=== PATIENT | female | born 1945 | race Caucasian/White ===

== ENCOUNTER 2019-10-29 08:44 | Outpatient (CLI) | payer MEDICARE, OTHER, SELFPAY ==
--- NOTE | ~2019-10-29 | XR_ITS ---
EXAMINATION: XR chest 2V EXAM DATE: 10/29/2019 09:20 INDICATION: Hypertension. TECHNIQUE: Frontal and lateral projections of the chest obtained and reviewed. There is no prior josiah dy for comparison. FINDINGS: Small clusters of nodules at the lung apices bilaterally, likely postinfectious. This patie nt has risk factors, smoking history consider follow-up low-dose chest CT. There are no pleural effus ions. The cardiomediastinal silhouette is within normal limits. There is no pneumothorax suspected. The bones and soft tissues are unremarkable. Mild hyperinflation. IMPRESSION: No acute cardiopulmonary findings. Small cluster of nodules in each lung apex likely post infectious but if there is higher risk than consider follow-up low-dose chest CT. Reviewed, dictated and finalized at location A. ENGER SCREENER IMPRESSION: No acute cardiopulmonary findings. Small cluster of nodules in each lung apex likely postinfectious but if there is higher risk than consider foll ow-up low-dose chest CT.
[2019-10-29 09:03] LABS: Basophils Absolute Auto 0.03 K/mm3 (0.00-0.10); Basophils Percent Auto 0.6 % (0.0-1.0); Eosinophils Absolute Auto 0.15 K/mm3 (0.02-0.50); Eosinophils Percent Auto 2.9 % (1.0-6.0); Hematocrit 40.5 % (35.0-42.0); Hemoglobin 13.1 g/dL (11.7-13.8); Immature Granulocyte Absolute 0.01 K/mm3 (0.00-0.00); Immature Granulocyte Percent A 0.2 % (0.0-0.0); Lymphocytes Percent Auto 36.9 % (18.0-42.0); Mean Corpuscular HGB Conc 32.3 g/dL (32.0-36.0); Mean Corpuscular Hemoglobin 29.4 pg (27.0-31.0); Mean Platelet Volume 11.1 fl (9.2-11.8); Monocytes Absolute Auto 0.58 K/mm3 (0.10-0.90); Monocytes Percent Auto 11.3 % (2.0-11.0); Neutrophils Absolute Auto 2.5 K/mm3 (1.7-7.2); Neutrophils Percent Auto 48.1 % (50.0-70.0); Platelet Count Result 218 K/mm3 (150-420); Red Blood Count 4.45 M/mm3 (4.20-5.40); Red Cell Distribution Width 13.4 % (11.6-14.4); White Blood Count 5.2 K/mm3 (4.8-10.8)
[2019-10-29 09:12] LABS: Add Urine Microscopic? YES; Appearance Urine Clear (Clear); Bilirubin Urine Negative (Negative); Blood Urine 1+ (Negative); Color Urine Yellow (Yellow); Glucose Urine UA Negative (Negative); Ketones Urine Negative (Negative); Leukocyte Esterase Ur Trace (Negative); Nitrate Urine Negative (Negative); Protein Urine Negative (Negative); Specific Grav Ur 1.025 (1.010-1.020); Urobilinogen Urine 0.2 mg/dL (0.2-1.0); pH Urine 5.5 (5.0-8.0)
[2019-10-29 09:17] LABS: RBC Urine 0-2 /hpf (0-2); Squamous Epithelial Cell Urine Occasional /hpf (Few); WBC Urine 0-3 /hpf (0-3)
[2019-10-29 09:18] LABS: Bacteria Urine None seen /hpf
[2019-10-29 10:14] LABS: Alanine Aminotransferase 32 U/L (14-59); Albumin Level 3.9 g/dL (3.4-5.0); Alkaline Phosphatase 129 U/L (46-116); Anion Gap 10.4 mmol/L (7-16); Aspartate Amino Transferase 25 U/L (15-37); Blood Urea Nitrogen 17 mg/dL (7-18); Calcium 9.3 mg/dL (8.5-10.1); Carbon Dioxide 33 mmol/L (21-32); Chloride 107 mmol/L (98-108); Cholesterol 184 mg/dL (0-200); Estimated Glomerular Filt Rate > 60; Glucose 83 mg/dL (70-99); HDL Direct 60 mg/dL (40-60); LDL Cholesterol Calculated 108 mg/dL (<130); Osmolality Calculated 300 mOsm/kg (285-295); Potassium 5.4 mmol/L (3.5-5.1); Sodium 145 mmol/L (136-145); Thyroid Stimulating Hormone 2.74 uIU/mL (0.36-3.74); Triglycerides 78 mg/dL (0-150)
[2019-10-31 19:54] LABS: Hepatitis A Antibody IgM Nonreactive; Hepatitis B Core Antibody Nonreactive (Nonreactive); Hepatitis B Surface Antigen Nonreactive (Nonreactive); Hepatitis C Signal to Cutoff 0.05 ratio (<1.00); Hepatitis C Virus Antibody Nonreactive (Nonreactive)
== END 2019-10-29 08:45 | disposition home or self-care (01) ==
PROVIDERS: PCP Internal Medicine; Visit Provider Internal Medicine
DX: I10 Essential (primary) hypertension (principal); R94.5 Abnormal results of liver function studies
CPT/HCPCS: 36415; 71046; 80053; 80061; 80074; 81001; 84443; 85025

== ENCOUNTER 2019-10-30 08:32 | Outpatient (CLI) | payer MEDICARE, OTHER, SELFPAY ==
--- NOTE | ~2019-10-30 | CT_ITS ---
EXAMINATION: CT abdomen pelvis wo con DATE: 10/30/2019 09:36 INDICATION: Hematuria TECHNIQUE: Computed tomography (CT) of the abdomen and pelvis was performed without intravenous contr ast. The dose-length product (DLP) was 214.76 mGy-cm. Automated exposure control and iterative recons truction technique were employed. COMPARISON: None FINDINGS: Minimal dependent atelectasis is present in the lung bases. The heart size is normal. There is a small fat-containing Bochdalek type hernia posteriorly right hemidiaphragm. A 1.4 cm fluid atte nuation area of the left hepatic lobe likely represents a cyst. The spleen, pancreas, and adrenal gla nds are normal. Stones are present in the gallbladder. The kidneys are unremarkable No stones are rene ntified in the kidneys, ureters, or bladder. There is no hydronephrosis or hydroureter. A large volum e of colonic stool is present. No pathologically enlarged abdominal or pelvic lymph nodes are identif ied. There is no free intraperitoneal gas or evidence of bowel obstruction. There is moderate lumbar spondylosis. A 2.1 cm cystic lesion in the right adnexa. IMPRESSION: 1. No CT correlate for the patient's symptoms. 2. 2.1 cm cystic lesion of the right adnexa. In a postmenopausal female, pelvic ultrasound should be considered. 3. Cholelithiasis. Reviewed, dictated and finalized at location A. ER
--- NOTE | ~2019-10-30 | CT_ITS ---
EXAMINATION: CT chest high resolution [facility] EXAM DATE: 10/30/2019 09:36 INDICATION: Hematuria, interstitial lung disease. Apical opacities on CT. TECHNIQUE: Spiral CT of the chest without contrast. HRCT. Axial, coronal and sagittal images were re viewed. Coronal maximum intensity pixel images of chest reviewed. The dose-length product (DLP) for this examination was 214.76 mGy-cm. The exposure was tailored according to patient size (auto mA ex posure control), and iterative reconstruction (ASIR) was used as additional dose reduction technique. There is no prior study for comparison. FINDINGS: Scattered biapical opacities consistent with scarring. No intralobular septal thickening o n the HRCT. There are no pleural or pericardial effusions. Tracheobronchial tree is patent. Ther e is no mediastinal, hilar or axillary lymphadenopathy. There is no pneumothorax. Heart normal in size. No evidence of coronary arterial calcification. There is cholelithiasis. There is left live r lobe lesion which is fluid density measuring 1.5 cm likely a cyst. There is mild thoracic spondylo sis without osteoblastic or osteolytic lesions identified. IMPRESSION: 1. Biapical opacities consistent with scarring. 2. Cholelithiasis. Reviewed, dictated and finalized at location A. S TUTOR
== END 2019-10-30 08:33 | disposition home or self-care (01) ==
LOC: CHSIMG 08:34
PROVIDERS: PCP Internal Medicine; Visit Provider Internal Medicine
DX: J84.9 Interstitial pulmonary disease, unspecified (principal); R31.9 Hematuria, unspecified
CPT/HCPCS: 71250; 74176

== ENCOUNTER 2019-11-05 12:26 | Outpatient (CLI) | payer MEDICARE, OTHER, SELFPAY ==
--- NOTE | ~2019-11-05 | US_ITS ---
EXAMINATION: US pelvic complete EXAM DATE: 11/05/2019 13:21 INDICATION: Cyst right-sided pelvis. TECHNIQUE: Pelvic transabdominal sonogram was performed. There are multiple grayscale and Doppler im ages available for interpretation. Correlation is made to CT abdomen 10/30/2019. FINDINGS: The uterus and ovaries are not identified. No evidence of adnexal mass. On the CT scan, the re is no good acoustic window to identify small right ovarian cystic lesion, with patient's cecum and small bowel located between it and the lower abdominal wall on CT. IMPRESSION: Unremarkable pelvic ultrasound exam. Right ovarian cystic lesion most likely benign histo logy but consider 6-12 month follow-up CT pelvis without contrast. Reviewed, dictated and finalized at location B. WORKER IMPRESSION: Unremarkable pelvic ultrasound exam. Right ovarian cystic lesion mo st likely benign histology but consider 6-12 month follow-up CT pelvis without contrast.
== END 2019-11-05 12:27 | disposition home or self-care (01) ==
LOC: CHSIMG 12:28
PROVIDERS: PCP Internal Medicine; Visit Provider Internal Medicine
DX: N94.89 Other specified conditions associated with female genital organs and menstrual cycle (principal)
CPT/HCPCS: 76856

== ENCOUNTER 2020-07-03 09:34 | Outpatient (CLI) | payer MEDICARE, OTHER, SELFPAY ==
--- NOTE | ~2020-07-03 | MM_ITS ---
EXAMINATION: MM screening luis e BI w nohemi HISTORY: Screening mammogram TECHNIQUE: Craniocaudal and mediolateral oblique 3-D tomosynthesis images were obtained and synthetic 2-D images were generated. CAD analysis was submitted and interpreted. COMPARISON: 11/05/2018, 10/04/2016, 07/29/2015 bilateral digital screening mammogram examinations BREAST PARENCHYMAL COMPOSITION: There are scattered areas of fibroglandular density. FINDINGS: There is no evidence of suspicious mass, calcification, or architectural distortion to sugg est malignancy in either breast. There has been no suspicious interval change. IMPRESSION: 1. No mammographic evidence of malignancy. 2. Recommend routine screening mammography in one year. BI-RADS Category 1: Negative Reviewed, dictated and finalized at location A.
--- NOTE | ~2020-07-03 | US_ITS ---
EXAMINATION: US pelvic complete DATE: 07/03/2020 10:35 INDICATION: Right ovarian cyst follow-up Comparison:Ultrasound dated 11/05/2019 TECHNIQUE: Multiple transabdominal sonographic images of the pelvis performed. FINDINGS: The uterus is surgically absent. Left ovary not visualized. Right ovary is unremarkable german suring 1.5 x 2.1 x 2.8 cm. No free fluid in the pelvis. There is no free fluid in the pelvis. There are no abnormal masses seen on either side. IMPRESSION: 1. Unremarkable pelvic ultrasound post hysterectomy. Reviewed, dictated and finalized at location B.
== END 2020-07-03 09:35 | disposition home or self-care (01) ==
LOC: CHSIMG 09:37
PROVIDERS: PCP Internal Medicine; Visit Provider Internal Medicine
DX: N83.201 Unspecified ovarian cyst, right side (principal); Z12.31 Encounter for screening mammogram for malignant neoplasm of breast
CPT/HCPCS: 76856; 77063; 77067

== ENCOUNTER 2020-07-08 12:26 | Outpatient (CLI) | payer MEDICARE, SELFPAY ==
[2020-07-08 13:41] LABS: Alanine Aminotransferase 42 U/L (14-59); Albumin Level 4.1 g/dL (3.4-5.0); Alkaline Phosphatase 174 U/L (46-116); Anion Gap 9 mmol/L (8-16); Aspartate Amino Transferase 26 U/L (15-37); Bilirubin,Total 0.8 mg/dL (0.00-1.00); Blood Urea Nitrogen 20 mg/dL (7-18); Calcium 9.3 mg/dL (8.5-10.1); Carbon Dioxide 29 mmol/L (21-32); Chloride 105 mmol/L (98-108); Estimated Glomerular Filt Rate > 60; Glucose 88 mg/dL (70-99); Osmolality Calculated 297 mOsm/kg (285-295); Potassium 4.3 mmol/L (3.5-5.1); Sodium 143 mmol/L (136-145); Total Protein 7.3 g/dL (6.4-8.2)
== END 2020-07-08 12:27 | disposition home or self-care (01) ==
LOC: CHSLAB 12:28
PROVIDERS: PCP Internal Medicine; Visit Provider Internal Medicine
DX: I10 Essential (primary) hypertension (principal)
CPT/HCPCS: 36415; 80053

== ENCOUNTER 2021-03-26 08:50 | Outpatient (CLI) | payer MEDICARE, SELFPAY ==
--- NOTE | ~2021-03-26 | DEXA_ITS ---
Bone Density Report Name: Elizabeth Rangel Age: 75 Sex: Female Ethnicity: White Date of : 1945 Indication: postmenopausal osteoporosis; height loss; hysterectomy; Referring Provider: Javier Rasmussen Study: Bone densitometry was performed. Exam Date: March 26, 2021 Accession number: [id number] Bone Density: Region BMD T-score Z-score Classification AP Spine(L1-L4) 0.922 -1.1 1.4 Osteopenia Femoral Neck (Left) 0.680 -1.5 0.6 Osteopenia Total Hip (Left) 0.811 -1.1 0.8 Osteopenia Femoral Neck (Right) 0.665 -1.7 0.5 Osteopenia Total Hip (Right) 0.755 -1.5 0.4 Osteopenia Femoral Neck Mean 0.673 -1.6 0.6 Osteopenia Total Hip Mean 0.783 -1.3 0.6 Osteopenia World Health Organization criteria for BMD impression classify patients as: Normal (T-score at or above -1.0), Osteopenia (T-score between -1.0 and -2.5), or Osteoporosis (T-score at or below -2.5). 10-year Fracture Risk(1): Major Osteoporotic Fracture 12% Hip Fracture 2.8% Reported Risk Factors: [place] (), Neck BMD=0.665, BMI=28.3 (1) FRAX(R) Version 3.08. Fracture probability calculated for an untreated patient. Fracture probability may be lower if the patient has received treatment. Previous Exams: Region Exam Age BMD T-score BMD Change BMD Change Date g/cm2 vs Baseline vs Previous AP Spine (L1-L4) 03/26/2021 75 0.922 -1.1 -0.070 (-7.1%) 0.520 (129.4%) 11/05/2018 73 0.402 -5.9 -0.590 (-59.5% -0.625 (-60.9% 07/29/2015 70 1.027 -0.2 0.034 (3.5%)* 0.034 (3.5%)* 10/31/2011 66 0.992 -0.5 Total Hip(Left) 03/26/2021 75 0.811 -1.1 0.020 (2.5%)# 0.016 (2.0%)# 11/05/2018 73 0.795 -1.2 0.004 (0.5%) -0.045 (-5.4%) 07/29/2015 70 0.840 -0.8 0.049 (6.2%)* 0.049 (6.2%)* 10/31/2011 66 0.791 -1.2 Total Hip(Right) 03/26/2021 75 0.755 -1.5 -0.003 (-0.5%) -0.007 (-0.9%) 11/05/2018 73 0.762 -1.5 0.003 (0.4%) 0.003 (0.4%) 10/31/2011 66 0.759 -1.5 *Denotes significance at 95% confidence level, LSC for AP Spine = 0.022 g/cm2, LSC for Total Hip = 0.027 g/cm2 # Denotes dissimilar scan types or analysis methods Clinical Information Provided by Patient: Has used the following medications: HRT (i.e. estrogen/hormone therapy), Calcium Has the following medical conditions: Hysterectomy Patient maximum height was 64 No regular weight bearing exercise Onset of menses at age 11 Number of children 3
[2021-03-26 09:42] LABS: Basophils Absolute Auto 0.03 K/mm3 (0.00-0.10); Basophils Percent Auto 0.6 % (0.0-1.0); Eosinophils Absolute Auto 0.07 K/mm3 (0.02-0.50); Eosinophils Percent Auto 1.5 % (1.0-6.0); Hematocrit 40.1 % (35.0-42.0); Hemoglobin 12.9 g/dL (11.7-13.8); Immature Granulocyte Absolute 0.02 K/mm3 (0.00-0.00); Immature Granulocyte Percent A 0.4 % (0.0-0.0); Lymphocytes Absolute Auto 1.69 K/mm3 (1.10-4.50); Lymphocytes Percent Auto 35.2 % (18.0-42.0); Mean Corpuscular HGB Conc 32.2 g/dL (32.0-36.0); Mean Corpuscular Hemoglobin 29.5 pg (27.0-31.0); Mean Corpuscular Volume 91.8 fL (78.0-102.0); Mean Platelet Volume 11.4 fl (9.2-11.8); Monocytes Absolute Auto 0.53 K/mm3 (0.10-0.90); Neutrophils Absolute Auto 2.5 K/mm3 (1.7-7.2); Neutrophils Percent Auto 51.3 % (50.0-70.0); Platelet Count Result 233 K/mm3 (150-420); Red Blood Count 4.37 M/mm3 (4.20-5.40); Red Cell Distribution Width 12.9 % (11.6-14.4); White Blood Count 4.8 K/mm3 (4.8-10.8)
[2021-03-26 09:58] LABS: Add Urine Microscopic? YES; Appearance Urine Clear (Clear); Bilirubin Urine Negative (Negative); Blood Urine 1+ (Negative); Color Urine Yellow (Yellow); Glucose Urine UA Negative (Negative); Ketones Urine Negative (Negative); Leukocyte Esterase Ur Negative (Negative); Nitrate Urine Negative (Negative); Protein Urine Negative (Negative); Specific Grav Ur >= 1.030 (1.010-1.020); Urobilinogen Urine 0.2 mg/dL (0.2-1.0); pH Urine 5.5 (5.0-8.0)
[2021-03-26 10:10] LABS: Bacteria Urine Trace /hpf; Mucus Urine Moderate /lpf; RBC Urine 0-2 /hpf (0-2); Squamous Epithelial Cell Urine Few /hpf (Few); WBC Urine None seen /hpf (0-3)
[2021-03-26 10:32] LABS: Alanine Aminotransferase 33 U/L (14-59); Albumin Level 3.9 g/dL (3.4-5.0); Alkaline Phosphatase 154 U/L (46-116); Anion Gap 10 mmol/L (8-16); Aspartate Amino Transferase 28 U/L (15-37); Bilirubin,Total 1.1 mg/dL (0.00-1.00); Blood Urea Nitrogen 14 mg/dL (7-18); Calcium 9.4 mg/dL (8.5-10.1); Carbon Dioxide 28 mmol/L (21-32); Chloride 107 mmol/L (98-108); Cholesterol 172 mg/dL (0-200); Estimated Glomerular Filt Rate > 60; Glucose 88 mg/dL (70-99); HDL Direct 67 mg/dL (40-60); LDL Cholesterol Calculated 91 mg/dL (<130); Osmolality Calculated 299 mOsm/kg (285-295); Potassium 4.5 mmol/L (3.5-5.1); Sodium 145 mmol/L (136-145); Thyroid Stimulating Hormone 2.17 uIU/mL (0.36-3.74); Triglycerides 71 mg/dL (0-150)
== END 2021-03-26 08:51 | disposition home or self-care (01) ==
LOC: CHSIMG 08:56
PROVIDERS: PCP Internal Medicine; Visit Provider Internal Medicine
DX: R94.5 Abnormal results of liver function studies (principal); I10 Essential (primary) hypertension; Z78.0 Asymptomatic menopausal state; M81.0 Age-related osteoporosis without current pathological fracture
CPT/HCPCS: 36415; 77080; 80053; 80061; 81001; 84443; 85025

== ENCOUNTER 2021-04-01 14:12 | Outpatient (CLI) | payer MEDICARE, SELFPAY ==
[2021-04-01 14:24] LABS: Add Urine Microscopic? YES; Appearance Urine Clear (Clear); Bilirubin Urine Negative (Negative); Blood Urine 1+ (Negative); Color Urine Yellow (Yellow); Glucose Urine UA Negative (Negative); Ketones Urine Negative (Negative); Leukocyte Esterase Ur Negative LEU/UL (Negative); Nitrate Urine Negative (Negative); Protein Urine Negative (Negative); Specific Grav Ur 1.025 (1.010-1.020); Urobilinogen Urine 0.2 mg/dL (0.2-1.0); pH Urine 5.5 (5.0-8.0)
[2021-04-01 14:47] LABS: Bacteria Urine 2+ /hpf; Squamous Epithelial Cell Urine Rare /hpf (Few); WBC Urine 0-3 /hpf (0-3)
== END 2021-04-01 14:13 | disposition home or self-care (01) ==
LOC: CHSLAB 14:15
PROVIDERS: PCP Internal Medicine; Visit Provider Internal Medicine
DX: R31.9 Hematuria, unspecified (principal)
CPT/HCPCS: 81001

== ENCOUNTER 2021-05-03 08:30 | Outpatient (CLI) | payer MEDICARE, SELFPAY ==
--- NOTE | ~2021-05-03 | CT_ITS ---
EXAMINATION: CT abdomen pelvis wo/w con EXAM DATE: 05/03/2021 09:33 INDICATION: Microscopic hematuria TECHNIQUE: Spiral CT of the abdomen and pelvis was performed without contrast. The patient was then injected with small bolus intravenous Omnipaque 350, followed by delay of approximately 10 minutes to allow collecting system to opacify. A post contrast scan abdomen and pelvis was performed during inj ection of remaining contrast. A total of 130 cc intravenous contrast was administered. The dose-meg th product (DLP) for this examination was 897.50 mGy-cm. The exposure was tailored according to chidi ent size (auto mA exposure control), and iterative reconstruction (ASIR) was used as additional dose reduction technique. Comparison is made to prior examination from 10/30/2019. FINDINGS: There is no hydronephrosis or nephrolithiasis. The kidneys enhance symmetrically. There a re no suspicious renal lesions. The calyces and opacified portions of ureters are unremarkable, with out filling defects or focal suspicious strictures. The bladder is unremarkable. The uterus is not identified and has likely been surgically resected. The liver, spleen, adrenal glands and pancreas are unremarkable. There are gallstones within an othe rwise unremarkable gallbladder. No evidence of obstructive biliary disease. There is no retroperito marie or pelvic lymphadenopathy. The appendix is not positively visualized. There is no pericecal inflammatory change to suggest appe ndicitis. The stomach and small bowel are unremarkable. There is expected amount of colonic stool. No free intraperitoneal gas. The heart is normal in size. There are no pericardial or pleural e ffusions. The lung bases are unremarkable. There are no osteoblastic or osteolytic lesions identifi ed. IMPRESSION: 1. No suspicious genitourinary findings. 2. Cholelithiasis. Reviewed, dictated and finalized at location A.
--- NOTE | ~2021-05-03 | XR_ITS ---
EXAMINATION: XR abdomen/kub 1V EXAM DATE: 05/03/2021 08:49 INDICATION: microscopic hematuria . TECHNIQUE: Frontal projection of the upper abdomen, frontal projection lower abdomen/pelvis for inter pretation. There is no prior study for comparison. FINDINGS: There is expected amount of colonic stool and gas. No small bowel dilation, nonobstructiv e bowel gas pattern. There are no suspicious calcifications identified. There is no organomegaly suspected. Mild lumbar dextroscoliosis. There is no free intraperitoneal air. The lung bases are clear. IMPRESSION: Unremarkable abdomen x-ray exam. Reviewed, dictated and finalized at location A.
== END 2021-05-03 08:31 | disposition home or self-care (01) ==
PROVIDERS: PCP Internal Medicine; Visit Provider Nurse Practitioner Family
DX: R31.29 Other microscopic hematuria (principal); K80.20 Calculus of gallbladder without cholecystitis without obstruction
CPT/HCPCS: 74018; 74178; Q9967

== ENCOUNTER 2022-05-02 14:00 | Outpatient (CLI) | payer MEDICARE, OTHER, SELFPAY ==
--- NOTE | ~2022-05-02 | MM_ITS ---
EXAMINATION: MM screening [facility] BI w nohemi HISTORY: Screening TECHNIQUE: Craniocaudal and mediolateral oblique 3-D tomosynthesis images were obtained and synthetic 2-D images were generated. CAD analysis was submitted and interpreted. COMPARISON: Comparison to multiple prior studies sequentially, with oldest reviewed study dated 01/23. BREAST PARENCHYMAL COMPOSITION: There are scattered areas of fibroglandular density. FINDINGS: There is no evidence of suspicious mass, calcification, or architectural distortion to sugg est malignancy in either breast. There has been no suspicious interval change. IMPRESSION: 1. No mammographic evidence of malignancy. 2. Recommend routine screening mammography in one year. BI-RADS Category 1: Negative Reviewed, dictated and finalized at location A.
== END 2022-05-02 14:01 | disposition home or self-care (01) ==
LOC: CHSIMG 14:06
PROVIDERS: PCP Internal Medicine; Visit Provider Internal Medicine
DX: Z12.31 Encounter for screening mammogram for malignant neoplasm of breast (principal)
CPT/HCPCS: 77063; 77067

== ENCOUNTER 2022-07-11 11:02 | Outpatient (CLI) | payer MEDICARE, OTHER, SELFPAY ==
[2022-07-11 11:59] LABS: Hematocrit 37.5 % (35.0-42.0); Hemoglobin 12.3 g/dL (11.7-13.8); Mean Corpuscular HGB Conc 32.8 g/dL (32.0-36.0); Mean Corpuscular Hemoglobin 28.9 pg (27.0-31.0); Mean Platelet Volume 10.3 fl (9.2-11.8); Platelet Count Result 206 K/mm3 (150-420); Red Blood Count 4.26 M/mm3 (4.20-5.40); White Blood Count 3.7 K/mm3 (4.8-10.8)
[2022-07-11 12:09] LABS: Appearance Urine Clear (Clear); Bilirubin Urine Negative (Negative); Color Urine Yellow (Yellow); Glucose Urine UA Negative (Negative); Ketones Urine Negative (Negative); Leukocyte Esterase Ur Trace (Negative); Nitrate Urine Negative (Negative); Protein Urine Negative (Negative); Specific Grav Ur 1.025 (1.010-1.020); Urobilinogen Urine 0.2 mg/dL (0.2-1.0)
[2022-07-11 12:28] LABS: Add Urine Microscopic? YES; Blood Urine Trace-Intact (Negative); RBC Urine None seen /hpf (0-2)
[2022-07-11 12:29] LABS: Bacteria Urine Trace /hpf; Mucus Urine Few /lpf; Squamous Epithelial Cell Urine Few /hpf (Few); WBC Urine 0-3 /hpf (0-3)
[2022-07-11 12:44] LABS: Band Neutrophils Percent 0 % (0-6); Lymphocytes Absolute Manual 1.73 K/mm3 (1.1-4.5); Lymphocytes Percent Manual 47 % (18-44); Monocytes Absolute Manual 0.66 K/mm3 (0.1-0.90); Monocytes Percent Manual 18 % (3-9); Neutrophils Absolute Manual 1.29 K/mm3 (1.7-7.2); Neutrophils Percent Manual 35 % (46-73); Platelet Estimate Adequate (Adequate); Total Cells Counted 100
[2022-07-11 12:45] LABS: Schistocytes None Seen (NORMAL)
[2022-07-11 13:11] LABS: Alanine Aminotransferase 29 U/L (14-59); Albumin Level 3.9 g/dL (3.4-5.0); Alkaline Phosphatase 160 U/L (46-116); Anion Gap 10 mmol/L (8-16); Aspartate Amino Transferase 24 U/L (15-37); Bilirubin,Total 0.7 mg/dL (0.00-1.00); Blood Urea Nitrogen 17 mg/dL (7-18); Calcium 8.7 mg/dL (8.5-10.1); Carbon Dioxide 27 mmol/L (21-32); Chloride 105 mmol/L (98-108); Cholesterol 191 mg/dL (0-200); Estimated Glomerular Filt Rate > 60; Glucose 81 mg/dL (70-99); HDL Direct 53 mg/dL (40-60); LDL Cholesterol Calculated 119 mg/dL (<130); Osmolality Calculated 294 mOsm/kg (285-295); Sodium 142 mmol/L (136-145); Thyroid Stimulating Hormone 1.41 uIU/mL (0.36-3.74); Total Protein 7.3 g/dL (6.4-8.2); Triglycerides 97 mg/dL (0-150)
== END 2022-07-11 11:03 | disposition home or self-care (01) ==
LOC: CHSLAB 11:04
PROVIDERS: PCP Internal Medicine; Visit Provider Internal Medicine
DX: I10 Essential (primary) hypertension (principal); Z00.00 Encounter for general adult medical examination without abnormal findings
CPT/HCPCS: 36415; 80053; 80061; 81001; 84443; 85025

== ENCOUNTER 2023-01-18 10:38 | Outpatient (CLI) | payer MEDICARE, OTHER, SELFPAY ==
[2023-01-18 11:07] LABS: Basophils Absolute Auto 0.03 K/mm3 (0.00-0.10); Basophils Percent Auto 0.6 % (0.0-1.0); Eosinophils Absolute Auto 0.02 K/mm3 (0.02-0.50); Eosinophils Percent Auto 0.4 % (1.0-6.0); Hemoglobin 12.5 g/dL (11.7-13.8); Immature Granulocyte Absolute 0.01 K/mm3 (0.00-0.00); Immature Granulocyte Percent A 0.2 % (0.0-0.0); Mean Corpuscular HGB Conc 32.1 g/dL (32.0-36.0); Mean Corpuscular Hemoglobin 29.1 pg (27.0-31.0); Mean Corpuscular Volume 90.7 fL (78.0-102.0); Mean Platelet Volume 10.8 fl (9.2-11.8); Monocytes Absolute Auto 0.58 K/mm3 (0.10-0.90); Neutrophils Absolute Auto 1.7 K/mm3 (1.7-7.2); Neutrophils Percent Auto 32.8 % (50.0-70.0); Platelet Count Result 192 K/mm3 (150-420); Red Cell Distribution Width 13.4 % (11.6-14.4); White Blood Count 5.3 K/mm3 (4.8-10.8)
[2023-01-18 11:37] LABS: Alanine Aminotransferase 30 U/L (14-59); Alkaline Phosphatase 134 U/L (46-116); Anion Gap 8 mmol/L (8-16); Aspartate Amino Transferase 29 U/L (15-37); Blood Urea Nitrogen 17 mg/dL (7-18); Calcium 9.2 mg/dL (8.5-10.1); Carbon Dioxide 29 mmol/L (21-32); Chloride 105 mmol/L (98-108); Estimated Glomerular Filt Rate > 60; Glucose 102 mg/dL (70-99); Osmolality Calculated 295 mOsm/kg (285-295); Potassium 4.9 mmol/L (3.5-5.1); Sodium 142 mmol/L (136-145); Total Protein 7.3 g/dL (6.4-8.2)
== END 2023-01-18 10:39 | disposition home or self-care (01) ==
LOC: CHSLAB 10:41
PROVIDERS: PCP Internal Medicine; Visit Provider Internal Medicine
DX: I10 Essential (primary) hypertension (principal)
CPT/HCPCS: 36415; 80053; 85025

== ENCOUNTER 2023-08-28 09:31 | Outpatient (CLI) | payer MEDICARE, SELFPAY ==
[2023-08-28 09:47] LABS: Basophils Absolute Auto 0.02 K/mm3 (0.00-0.10); Basophils Percent Auto 0.4 % (0.0-1.0); Eosinophils Absolute Auto 0.02 K/mm3 (0.02-0.50); Eosinophils Percent Auto 0.4 % (1.0-6.0); Hemoglobin 12.5 g/dL (11.7-13.8); Immature Granulocyte Absolute 0.01 K/mm3 (0.00-0.00); Immature Granulocyte Percent A 0.2 % (0.0-0.0); Lymphocytes Absolute Auto 2.46 K/mm3 (1.10-4.50); Lymphocytes Percent Auto 54.3 % (18.0-42.0); Mean Corpuscular HGB Conc 32.1 g/dL (32.0-36.0); Mean Corpuscular Volume 93.5 fL (78.0-102.0); Monocytes Absolute Auto 0.53 K/mm3 (0.10-0.90); Monocytes Percent Auto 11.7 % (2.0-11.0); Neutrophils Absolute Auto 1.5 K/mm3 (1.7-7.2); Platelet Count Result 193 K/mm3 (150-420); Red Blood Count 4.17 M/mm3 (4.20-5.40); Red Cell Distribution Width 13.2 % (11.6-14.4); White Blood Count 4.5 K/mm3 (4.8-10.8)
[2023-08-28 09:55] LABS: Appearance Urine Clear (Clear); Bilirubin Urine Negative (Negative); Blood Urine Trace-Intact (Negative); Color Urine Light Yellow (Yellow); Glucose Urine UA Negative (Negative); Ketones Urine Negative (Negative); Leukocyte Esterase Ur 1+ (Negative); Nitrate Urine Negative (Negative); Protein Urine Negative (Negative); Urobilinogen Urine 0.2 mg/dL (0.2-1.0); pH Urine 5.5 (5.0-8.0)
[2023-08-28 10:23] LABS: Add Urine Microscopic? YES; RBC Urine 0-2 /hpf (0-2); Renal Epithelial Cells Urine Few /hpf; Squamous Epithelial Cell Urine Few /hpf (Few); WBC Urine 0-3 /hpf (0-3)
[2023-08-28 10:24] LABS: Bacteria Urine Trace /hpf
[2023-08-28 10:43] LABS: Alanine Aminotransferase 30 U/L (14-59); Albumin Level 3.9 g/dL (3.4-5.0); Alkaline Phosphatase 120 U/L (46-116); Anion Gap 0 mmol/L (8-16); Aspartate Amino Transferase 26 U/L (15-37); Bilirubin,Total 0.8 mg/dL (0.00-1.00); Blood Urea Nitrogen 14 mg/dL (7-18); Calcium 9.3 mg/dL (8.5-10.1); Carbon Dioxide 34 mmol/L (21-32); Chloride 102 mmol/L (98-108); Cholesterol 173 mg/dL (0-200); Estimated Glomerular Filt Rate > 60; Glucose 91 mg/dL (70-99); HDL Direct 60 mg/dL (40-60); LDL Cholesterol Calculated 93 mg/dL (<130); Osmolality Calculated 282 mOsm/kg (285-295); Potassium 4.5 mmol/L (3.5-5.1); Sodium 136 mmol/L (136-145); Total Protein 7.1 g/dL (6.4-8.2); Triglycerides 99 mg/dL (0-150)
== END 2023-08-28 09:32 | disposition home or self-care (01) ==
LOC: CHSLAB 09:34
PROVIDERS: PCP Internal Medicine; Visit Provider Internal Medicine
DX: I10 Essential (primary) hypertension (principal)
CPT/HCPCS: 36415; 80053; 80061; 81001; 84443; 85025

== ENCOUNTER 2024-08-19 13:26 | Outpatient (CLI) | payer MEDICARE, OTHER, SELFPAY ==
--- NOTE | ~2024-08-19 | DEXA_ITS ---
Bone Density Report Name: MARVIN MCBRIDE Age: 79 Sex: Female Ethnicity: White Date of : 1945 Indication: osteopenia; hysterectomy; Referring Provider: Javier Rasmussen Study: Bone densitometry was performed. Exam Date: August 19, 2024 Accession number: [id number] Bone Density: Region BMD T-score Z-score Classification AP Spine(L2, L3, L4) 0.978 -0.9 1.9 Normal Femoral Neck (Left) 0.638 -1.9 0.4 Osteopenia Total Hip (Left) 0.852 -0.7 1.3 Normal Femoral Neck (Right) 0.606 -2.2 0.1 Osteopenia Total Hip (Right) 0.796 -1.2 0.9 Osteopenia Femoral Neck Mean 0.622 -2.0 0.3 Osteopenia Total Hip Mean 0.824 -1.0 1.1 Normal World Health Organization criteria for BMD impression classify patients as: Normal (T-score at or above -1.0), Osteopenia (T-score between -1.0 and -2.5), or Osteoporosis (T-score at or below -2.5). 10-year Fracture Risk(1): Major Osteoporotic Fracture 16% Hip Fracture 5.0% Reported Risk Factors: [place] (), Neck BMD=0.606, BMI=28.2 (1) FRAX(R) Version 3.08. Fracture probability calculated for an untreated patient. Fracture probability may be lower if the patient has received treatment. Previous Exams: Region Exam Age BMD T-score BMD Change BMD Change Date g/cm2 vs Baseline vs Previous AP Spine (L2-L4) 08/19/2024 79 0.978 -0.9 -0.040 (-3.9%) 0.033 (3.4%)* 03/26/2021 75 0.945 -1.2 -0.072 (-7.1%) 0.509 (116.9%) 11/05/2018 73 0.436 -5.8 -0.582 (-57.2% -0.630 (-59.1% 07/29/2015 70 1.066 -0.1 0.048 (4.7%)*! 0.048 (4.7%)* 10/31/2011 66 1.018 -0.6 Total Hip(Left) 08/19/2024 79 0.852 -0.7 0.061 (7.7%)# 0.041 (5.1%)* 03/26/2021 75 0.811 -1.1 0.020 (2.5%)# 0.016 (2.0%)# 11/05/2018 73 0.795 -1.2 0.004 (0.5%) -0.045 (-5.4%) 07/29/2015 70 0.840 -0.8 0.049 (6.2%)* 0.049 (6.2%)* 10/31/2011 66 0.791 -1.2 Total Hip(Right) 08/19/2024 79 0.796 -1.2 0.037 (4.9%)# 0.041 (5.4%)* 03/26/2021 75 0.755 -1.5 -0.003 (-0.5%) -0.007 (-0.9%) 11/05/2018 73 0.762 -1.5 0.003 (0.4%) 0.003 (0.4%) 10/31/2011 66 0.759 -1.5 *Denotes significance at 95% confidence level, LSC for AP Spine = 0.022 g/cm2, LSC for Total Hip = 0.027 g/cm2 # Denotes dissimilar scan types or analysis methods Clinical Information Provided by Patient: Has the following medical conditions: Hysterectomy Patient maximum height was 62 Menopause Age: 49 No regular weight bearing exercise Onset of menses at age 11 Number of children 3 Impression: The patient has low bone mass, based on the Right Femoral Neck T-score. No significant bone loss was observed. Discussion: BONE DENSITY IS LOW AT ONE OR MORE SKELETAL SITES. This patient's lowest T-score is low at one or more skeletal sites. It meets the World Health Organization's (WHO) criteria for ?low bone mass? (T-score between -1.0 and -2.5). The patient's 10-year risk of fracture as calculated by FRAX is less than the threshold where pharmacological therapy is recommended by the National Osteoporosis Foundation (NOF). However, all treatment decisions require clinical judgment and consideration of individual patient factors, including patient preferences, comorbidities, previous drug use, risk factors not captured in the FRAX model (e.g., frailty, falls, vitamin D deficiency, increased bone turnover, interval significant decline in bone density) and possible under or overestimation of fracture risk by FRAX. The patient should follow a healthful lifestyle (good nutrition with adequate calcium and vitamin D, and appropriate weight-bearing exercise). Follow-Up: Consider repeating this study in 2 to 3 years to reassess this patient's status, or sooner if there is some new clinical indication. Reported by: ARTUR on 08/19/2024 2:08:00 PM. Reviewed, dictated and finalized at location A.
--- NOTE | ~2024-08-19 | MM_ITS ---
EXAMINATION: MM screening l[facility] e BI w nohemi HISTORY: Screening TECHNIQUE: Craniocaudal and mediolateral oblique 3-D tomosynthesis images were obtained and synthetic 2-D images were generated. CAD analysis was submitted and interpreted. COMPARISON: Comparison to multiple prior studies sequentially, with oldest reviewed study dated 07/12. BREAST PARENCHYMAL COMPOSITION: Not dense: There are scattered areas of fibroglandular density. FINDINGS: There is no evidence of suspicious mass, calcification, or architectural distortion to sugg est malignancy in either breast. There has been no suspicious interval change. IMPRESSION: 1. No mammographic evidence of malignancy. 2. Recommend routine screening mammography in one year. BI-RADS Category 1: Negative Reviewed, dictated and finalized at location B. [employer]
== END 2024-08-19 13:27 | disposition home or self-care (01) ==
PROVIDERS: PCP Internal Medicine; Visit Provider Internal Medicine
DX: Z12.31 Encounter for screening mammogram for malignant neoplasm of breast (principal); Z78.0 Asymptomatic menopausal state; M85.89 Other specified disorders of bone density and structure, multiple sites
CPT/HCPCS: 77063; 77067; 77080

== ENCOUNTER 2025-01-13 11:06 | Outpatient (CLI) | payer MEDICARE, OTHER, SELFPAY ==
--- NOTE | ~2025-01-13 | XR_ITS ---
Lumbosacral Spine: AP and lateral views Clinical History: Pain Findings: There is mild dextroscoliosis. There is minimal grade 1 retrolisthesis of L2 over L3. There is severe degenerative tearing at L2-L3. There is advanced facet arthropathy from L4 through S1, wit h moderate facet arthropathy at the upper lumbar spine. The sacroiliac joints are normally outlined. Impression: Moderate degenerative spondylosis, as above, with mild dextroscoliosis. Reviewed, dictated and finalized at location M. Impression: Moderate degenerative spondylosis, as above, with mild dextroscoliosis.
--- NOTE | ~2025-01-13 | XR_ITS ---
AP and lateral views of the left hip Clinical history: Pain Findings: No acute fracture or dislocation is seen. Osseous alignment is anatomic. Left hip joint int act. Soft tissues are unremarkable. Impression: No significant abnormality is seen. Reviewed, dictated and finalized at location . Impression: No significant abnormality is seen.
--- OUTSIDE RECORDS SUMMARY | 2025-01-13 12:02 | XMS_ITS | Referral Summary ---
Author Organization [facility] Main [place] Address [address] [place] [address] Care Team Providers Care Qa Reviewer Name Role Phone Javier Rasmussen MD Primary Care Provider [phone] Encounters Date Type Department Care Team Description 12/02/2024 Telephone [facility] Neuro Interventional Radiology [address] [place] [address] Kayce Chavarria 11/25/2024 1:31 PM CDT - 11/25/2024 11:59 PM T Hospital Encounter [facility] [address] [place] [id number] Cerebral aneurysm, nonruptured Discharge Disposition: Discharge to home or self care 10/31/2024 Orders Only [facility] Neuro Interventional Radiology [address] [place] [address] Kayce Chavarria Cerebral aneurysm, nonruptured (Primary Dx) from Last 3 Months Allergies No known active allergies Medications fluticasone propionate (FLONASE) 50 mcg/actuation nasal sprayIndication s:Allergic Conjunctivitis, Allergic Rhinitis Administer 1 spray into each nostril daily as needed Active vit C/E/Zn/coppr/millie tein/zeaxan (PRESERVISION AREDS-2 ORAL)Indication s:EYE HEALTH Take 1 capsule by mouth 2 (two) times a day Active magnesium hydroxide (CONCENTRATED MILK OF MAGNESIA) suspension 2,400 mg/10 mLIndications:c onstipation Take 10 mL by mouth as needed Active felodipine (PLENDIL) 5 mg 24 hr tablet 0 Active aspirin 81 mg enteric coated tablet Take 1 tablet (81 mg total) by mouth daily 30 tablet 11 0 Active Active Problems No known active problems Social History Tobacco Use Types Packs/Day Years Used Date Smoking Tobacco: Never Smokeless Tobacco: Never Alcohol Use Standard Drinks/Week Comments Yes 0 (1 standard drink = 0.6 oz pur e alcohol) RARE PHQ-2 Answer Date Recorded PHQ-2 Score 0 05/04/2019 Comments Unknown Sex and Gender Information Value Date Recorded Sex Assigned at Not on file Legal Sex Female 8:17 AM CDT Gender Identity Not on file Sexual Orientation Not on file Last Filed Vital Signs Vital Sign Reading Time Taken Comments Blood Pressure 155/61 10/31/2019 1:30 PM RADIATION OFFICER Pulse 63 10/31/2019 1:45 PM RADIATION OFFICER Temperature 36.2 C (97.2 F) 10/31/2019 12:30 PM RADIATION OFFICER Respiratory Rate 16 10/31/2019 1:00 PM RADIATION OFFICER Oxygen Saturation 97% 10/31/2019 1:45 PM RADIATION OFFICER Inhaled Oxygen Concentration - - Weight 67.6 kg (149 lb) 10/31/2019 9:31 AM RADIATION OFFICER Height 162.6 cm (5' 4 ) 10/31/2019 9:31 AM RADIATION OFFICER Body Mass Index 25.58 10/31/2019 9:31 AM RADIATION OFFICER Plan of Treatment Not on file Medical Devices Implanted Type Area Materials Tech Device Identifier Shelf Expiration Date Model / Serial / Lot Microplex Coil Brain Target Coil-09/04/2018 Implanted:09/04/20 18 (Quantity not on file) Brain Hydrocoil-09/04/20 Implanted:09/04/20 18 (Quantity not on file) Brain [employer] Apb-1.5-2-3d-Es Axium Prime 1.5mm 2cm Extra Soft 3d Coil Embolization - [id number] Implanted:Qty: 1 on 04/04/2019 at [facility] [employer] 01/11/2022 APB-1.5-2- 3D-ES / / [id number] Medtronic Inc Ixl-1-9-3d-Es Axium Prime 2mm 3cm Extra Soft 3d Coil Embolization - [id number] Implanted:Qty: 1 on 04/04/2019 at [facility] [employer] 12/07/2021 APB-2-3-3D -ES / / [id number] [place] [employer] [id number] - [id number] Implanted:Qty: 1 on 04/04/2019 at [facility] [employer] 08/25/2023 [id number] 150 / / [id number] Medtronic Inc Tge-7-6-3d-Es Axium Prime 3mm 8cm Extra Soft 3d Coil Embolization - [id number] Implanted:Qty: 1 on 04/04/2019 at [facility] [employer] 08/19/2021 APB-3-8-3D -ES / / [id number] [employer] [id number] - [id number] Implanted:Qty: 1 on 04/04/2019 at [facility] [place] [employer] 09/12/2023 [id number] 210 / / [id number] [employer] [id number] Device Closure Angio-Seal Vip Bondek-Plus Polyglyd L70 Cm Od6 Fr Odsec.035 In Vascular - [id number] Implanted:Qty: 1 on 10/31/2019 at [facility] [employer] 05/11/2020 [id number] / / [id number] Explanted Type Area Materials Tech Device Identifier Shelf Expiration Date Model / Serial / Lot Medtronic Inc Slw-3-3-3d-Ss Axium Prime Latticefx 4mm .0115in 8cm Detachable Coil - [id number] Implanted:Qty: 1 Explanted:Qty: 1 on 04/04/2019 at [facility] [employer] 02/20/2021 APB-4-8-3D- S S / / [id number] Description:Attempted use Procedures Procedure Name Priority Date/Time Associated Diagnosis Comments CTA HEAD W WO CONTRAST Schedule Routine, Read Routine (OP Routine) 11/25/2024 2:54 PM CDT Cerebral aneurysm, nonruptured POCT CREATININE - DEVICE Routine 11/25/2024 2:12 PM CDT from Last 3 Months Results * CTA Head W WO Contrast (11/25/2024 2:54 PM CDT) Anatomical Region Laterality Modality Head and Neck N/A Computed Tomogra phy 11/25/2024 5:05 PM CDT Impressions 11/25/2024 5:44 PM CDT 1. No acute intracranial process. 2. Post treatment changes of coiling of the anterior commuting artery aneurysm without evidence of enlarging aneurysm at the site of coiling. Dictated by: Neto Hidalgo M.D. The radiology attending physician has personally reviewed this study, and had reviewed and/or edited this written report and agrees with it. Electronically signed by: Mariza Ingram M.D. 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 Patient is obtaining a 5 year follow-up CTA. TECHNIQUE: CT of the head was performed with images acquired from skull base to vertex without intravenous contrast. Computed tomographic angiography was obtained from the skull base to the vertex following the uneventful administration of intravenous contrast. 3D images of the CTA were generated on a dedicated workstation/buffet server. Contrast information: 69 mL Optiray-350 IV COMPARISON: MRI 04/04/2019 FINDINGS: HEAD: Post treatment changes of the anterior communicating artery aneurysm coiling. There is no acute intracranial hemorrhage. Mild parenchymal atrophy with mild ex vacuo dilatation of the ventricles. No mass effect or midline shift is present. The saunders-white matter differentiation is normal. Bilateral lens replacements. The visualized portions of the mastoids are normal. The visualized portions of the paranasal sinuses are normal. No fractures are identified. CTA: The vascular coil causes significant beam hardening artifact but within these limitations, there is no evidence of aneurysm at the site of coiling. There are stents within the left A1 segment and bilateral A2 segments. The visualized course and caliber of the internal carotid arteries in the head are normal. There are calcifications within the intracranial vertebral arteries and the cavernous sinus internal carotid arteries. The anterior and middle cerebral arteries are normal. The vertebral arteries are codominant. The basilar artery is normal. The posterior cerebral arteries are normal. 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 Patient is obtaining a 5 year follow-up CTA. TECHNIQUE: CT of the head was performed with images acquired from skull base to vertex without intravenous contrast. Computed tomographic angiography was obtained from the skull base to the vertex following the uneventful administration of intravenous contrast. 3D images of the CTA were generated on a dedicated workstation/buffet server. Contrast information: 69 mL Optiray-350 IV COMPARISON: MRI 04/04/2019 FINDINGS: HEAD: Post treatment changes of the anterior communicating artery aneurysm coiling. There is no acute intracranial hemorrhage. Mild parenchymal atrophy with mild ex vacuo dilatation of the ventricles. No mass effect or midline shift is present. The saunders-white matter differentiation is normal. Bilateral lens replacements. The visualized portions of the mastoids are normal. The visualized portions of the paranasal sinuses are normal. No fractures are identified. CTA: The vascular coil causes significant beam hardening artifact but within these limitations, there is no evidence of aneurysm at the site of coiling. There are stents within the left A1 segment and bilateral A2 segments. The visualized course and caliber of the internal carotid arteries in the head are normal. There are calcifications within the intracranial vertebral arteries and the cavernous sinus internal carotid arteries. The anterior and middle cerebral arteries are normal. The vertebral arteries are codominant. The basilar artery is normal. The posterior cerebral arteries are normal. IMPRESSION: 1. No acute intracranial process. 2. Post treatment changes of coiling of the anterior commuting artery aneurysm without evidence of enlarging aneurysm at the site of coiling. Dictated by: Neto Hidalgo M.D. The radiology attending physician has personally reviewed this study, and had reviewed and/or edited this written report and agrees with it. Electronically signed by: Mariza Ingram M.D. us Sharif Marcial MD IMG CT PROCEDURES Fin al Result * POCT creatinine (11/25/2024 2:12 PM CDT) Creatinine POC 0.8 0.6 - 1.1 mg/dL Blood 11/25/2024 2:12 PM CDT 11/25/2024 2:12 PM CDT us Sharif Marcial MD LAB POCT ORDERABLES - DEVICE Final Result [facility] [place] [address] from Last 3 Months [place] [id number] MEDICARE [employer] Advance Directives For more information, please contact: [phone] * Full Code (Latest Code Status on File) Date Activated Date Inactivated Comments 10/31/2019 11:45 AM 11/01/2019 11:26 AM * Full Code Date Activated Date Inactivated Comments 04/04/2019 6:33 PM 04/06/2019 6:41 PM * Full Code Date Activated Date Inactivated Comments 04/04/2019 6:29 PM 04/04/2019 6:33 PM * Full Code Date Activated Date Inactivated Comments 01/22/2019 9:40 AM 01/22/2019 5:05 PM Care Teams Qa Reviewer Relationship Specialty Start Date End Date Javier Rasmussen MD [address] [place] [address] PCP - General Internal Medicine 11/19/24
--- OUTSIDE RECORDS SUMMARY | 2025-01-13 12:02 | XMS_ITS | Continuity of Care Document ---
Author Organization [facility] Address [address] [place] [address] Phone Care Team Providers Care Carpenter Helper Maintenance Name Role Phone Max Lynch MD Unavailable Unavailable Procedures Procedure Date TTE W/DOPPLER, COMPLETE Advance Directives Directive Yes / No Effective Date File Name No Information Encounters Encounter Description Practice Location Reason(s) For Visit Diagnoses Date Provider Providers Copied on Encounter [facility], [address] [place] [address], [id number], tel:[phone] [facility] No Information Syed Santana. [address], [place], [place], [id number] , [place]. tel:[phone] Referring Provider: Max Jo, [address], [place], [address] . tel:[phone] Family History Family Member Type Diagnosis Age At Onset No Information Payers Payer name Insurance type Covered democrat ID Authoriza tidaisy(s) Medicare Part B [id number] [facility] [id number] Social History Type Description Quantity Date Captured Comments Sex Female Smoking Status No Information Chief Complaint And Reason For Visit No Information Reason For Referral Reason For Referral No Information History Of Present Illness Encounter Date Complaint History Of Prese nt Illness No Information Functional Status Date Functional Assessmen t No Information Instructions Date Instruction Additional Infor mation No Information Assessments Type Assessment Date No Information Patient Care Teams Name Effective Dates (start - stop) Status Members No Information
--- OUTSIDE RECORDS SUMMARY | 2025-01-13 12:02 | XMS_ITS | Clinical Summary ---
Author Organization [facility] Main [place] Address [address] [place] [address] Care Team Providers Care Wet Suit Gluer Name Role Phone Javier Rasmussen MD Primary Care Provider [phone] Allergies No known active allergies Medications fluticasone [...] Active Active Problems No known active problems Encounters Date Type Department Care Team Description 12/02/2024 Telephone [facility] Neuro Interventional Radiology [address] [place] [address] Kayce Chavarria 11/25/2024 1:31 PM CDT - 11/25/2024 11:59 PM CDT Hospital Encounter [facility] [address] [place] [address] Cerebral aneurysm, nonruptured Discharge Disposition: Discharge to home or self care 10/31/2024 Orders Only [facility] Neuro Interventional Radiology [address] [place] [address] Kayce Chavarria Cerebral aneurysm, nonruptured (Primary Dx) from Last 3 Months Surgical History Surgery Date Site/Laterality Comments BRAIN SURGERY Aneurysm Coiling Jun 2018 ANGIO SELECTIVE CAROTID COORDINATING PRODUCER RIGHT 01/22/2019 Right HYSTERECTOMY 09/11/1999 - 09/10/2000 CATARACT EXTRACTION BILATERAL W/ ANTERIOR VITRECTOMY 09/11/2010 - 09/10/2011 Bilateral OTHER SURGICAL HISTORY 01/22/2019 Demonstration of coil compaction and anterior communicating artery OTHER SURGICAL HISTORY 06/11/2018 - 07/11/2018 ruptured acomm aneurysm in 06/2018 treated with coils in [place] CATARACT EXTRACTION W/ INTRAOCULAR LENS IMPLANT Bilateral ANGIO SELECTIVE CAROTID COORDINATING PRODUCER LEFT 10/31/2019 Left Medical History Medical History Date Comments Aneurysm 2018 ruptured acomm a neurysm in 06/2018 treated with coils in [place] Anemia [place] (hard of hearing) Wears left ear hearing aide Constipation Cataract Hypertension Stroke (HCC) Family History Relation Name Status Comments Mother (Age 94 y/o) Had po ssible seizure in holding area causing cancellation of (? Hyerectomy) procedure. Case done 1 week later without complications Social History Tobacco Use Types Packs/Day Years [...] on file Sexual Orientation Not on file Obstetrics History Comments Hysterecomy: 1999 Last Filed Vital Signs Vital Sign Reading Time Taken Comments Blood Pressure 155/61 10/31/2019 1:30 PM METAL MOVER Pulse 63 10/31/2019 1:45 PM METAL MOVER Temperature 36.2 C (97.2 F) 10/31/2019 12:30 PM METAL MOVER Respiratory Rate 16 10/31/2019 1:00 PM METAL MOVER Oxygen Saturation 97% 10/31/2019 1:45 PM METAL MOVER Inhaled Oxygen Concentration - - Weight 67.6 kg (149 lb) 10/31/2019 9:31 AM METAL MOVER Height 162.6 cm (5' 4 ) 10/31/2019 9:31 AM METAL MOVER Body Mass Index 25.58 10/31/2019 9:31 AM METAL MOVER Plan of Treatment Health Maintenance Due Date Last Done Comments Fall Risk Assessment 1945 Osteoporosis Screening-Bone Density Scan 1944 DTaP/Tdap/Td Vaccine (1 - Tdap) 1955 Hepatitis B Screening 1962 Pneumococcal vaccine 65+ (1 of 1 - PCV) 1994 Zoster Vaccine (1 of 2) 1994 Well Visit 65+ 2009 Depression Screening 04/04/2020 04/04/2019 Covid-19 Vaccine ( season) 2024 07/26/2021, 12/08/2020, 11/17/2020 Influenza Vaccine Completed 07/02/2024, 07/19/2022 Medical Devices Implanted Type Area Apparatus Repair Mechanic Device Identifier Shelf Expiration Date Model / Serial / Lot Microplex Coil Brain Target Coil-09/04/2018 Implanted:09/04/20 18 (Quantity not on file) Brain Hydrocoil-09/04/20 18 Implanted:09/04/20 18 (Quantity not on file) Brain [employer] Apb-1.5-2-3d-Es Axium Prime 1.5mm 2cm Extra Soft 3d Coil Embolization - [id number] Implanted:Qty: 1 on 04/04/2019 at [facility] [employer] 01/11/2022 APB-1.5-2- 3D-ES / / [id number] [employer] Inc Hcd-6-1-3d-Es Axium Prime 2mm 3cm Extra Soft 3d Coil Embolization - [id number] Implanted:Qty: 1 on 04/04/2019 at [facility] [employer] 12/07/2021 APB-2-3-3D -ES / / [id number] [employer] [id number] - [id number] Implanted:Qty: 1 on 04/04/2019 at [facility] [employer] 08/25/2023 [id number] 150 / / [id number] [employer] Djd-8-3-3d-Es Axium Prime 3mm 8cm Extra Soft 3d Coil Embolization - [id number] Implanted:Qty: 1 on 04/04/2019 at [facility] [employer] 08/19/2021 APB-3-8-3D -ES / / [id number] [place] [employer] [id number] - [id number] Implanted:Qty: 1 on 04/04/2019 at [facility] [employer] 09/12/2023 [id number] 210 / / [id number] [employer] [id number] Device Closure Angio-Seal Vip [employer]-Plus Polyglyd L70 Cm Od6 Fr Odsec.035 In Vascular - [id number] Implanted:Qty: 1 on 10/31/2019 at [facility] [email or web address] 05/11/2020 [id number] / / [id number] Explanted Type Area Apparatus Repair Mechanic Device Identifier Shelf Expiration Date Model / Serial / Lot Medtronic Inc Hyl-9-4-3d-Ss Axium Prime Latticefx 4mm .0115in 8cm Detachable Coil - [id number] Implanted:Qty: 1 Explanted:Qty: 1 on 04/04/2019 at [facility] [employer] 02/20/2021 APB-4-8-3D- S S / / [id number] Description:Attempted use Procedures Procedure Name Priority Date/Time [...] communicating artery aneurysm treated by coiling in [place] and demonstrated in [place] in March 2019 with 2 stents in [...] the CTA were generated on a dedicated workstation/server manager. Contrast information: 69 mL Optiray-350 IV COMPARISON: [...] posterior cerebral arteries are normal. 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 Contrast information: 69 mL Optiray-350 IV COMPARISON: [...] it. Electronically signed by: Mariza Ingram M.D. Sharif Marcial MD IMG CT PROCEDURES Fin al Result * POCT creatinine (11/25/2024 2:12 PM CDT) Creatinine POC 0.8 0.6 - 1.1 mg/dL Blood 11/25/2024 2:12 PM CDT 11/25/2024 2:12 PM CDT us Sharif Marcial MD LAB POCT ORDERABLES - DEVICE Final Result [facility] Department [place] [address] from Last 3 Months Insurance MEDICARE [facility] MEDICARE [facility] MEDICARE [facility] Address: [address] [place] [id number] [facility] Advance Directives For more information, please contact: [phone] * Full Code (Latest Code Status on File) Date Activated Date Inactivated Comments 10/31/2019 11:45 AM 11/01/2019 11:26 AM * Full Code Date Activated Date Inactivated Comments 04/04/2019 6:33 PM 04/06/2019 6:41 PM * Full Code Date Activated Date Inactivated Comments 04/04/2019 6:29 PM 04/04/2019 6:33 PM * Full Code Date Activated Date Inactivated Comments 01/22/2019 9:40 AM 01/22/2019 5:05 PM Care Teams Wet Suit Gluer Relationship Specialty Start Date End Date Javier Rasmussen MD [address] [place] [address] PCP - General Internal Medicine 11/19/24
--- OUTSIDE RECORDS SUMMARY | 2025-01-13 12:03 | XMS_ITS | Continuity of Care Document ---
Author Organization [facility] Address [address] [place] [address] [place] [address] Phone Care Team Providers Care Special Education Teachers Name Role Phone Domenic Thibodeaux Unavailable Unavailable Procedures Procedure Date Office/outpatient Visit, Est Eye Exam Established Pt Advance Directives Directive Yes / No Effective Date File Name No Information Encounters Encounter Description Practice Location Reason(s) For Visit Diagnoses Date Provider Providers Copied on Encounter Office/outpat ient Visit, Est [facility], [address] [place] [address] [address], [place], [place], [id number], tel:[phone] [facility] No Information [address]. [address] , [address], [place], [address], [place]. tel:[phone] [facility], [address] [place] [address] [address], [place], [place], [id number], [place] tel:[phone] [facility] No Information [address]. [address] , [address], [place], [address], [place]. tel:[phone] Family History Family Member Type Diagnosis Age At Onset No Information Payers Payer name Insurance type Covered constitution party ID Authorgrega kyledaisy(s) [facility] CI [id number] Social History Type Description Quantity Date Captured [...]
== END 2025-01-13 11:07 | disposition home or self-care (01) ==
LOC: CHSIMG 11:07
PROVIDERS: PCP Internal Medicine; Visit Provider Internal Medicine
DX: I10 Essential (primary) hypertension (principal); M54.50 Low back pain, unspecified; M43.06 Spondylolysis, lumbar region; M41.86 Other forms of scoliosis, lumbar region
CPT/HCPCS: 72100; 73502

== ENCOUNTER 2025-01-20 08:59 | Outpatient (RCR) | payer MEDICARE, OTHER, SELFPAY ==
--- NOTE | 2025-01-20 09:46 | PTOPEVAL1 ---
Assessment and note entered by Jw Valencia Evaluation Information Assessment Status Evaluation ICD-10 Condition Codes (PT) Pain in low back M54.50 Onset 11/09/24 Subjective Information Pt. reports that she woke with back pain around the beginning of November. She states that it was a gradual onset of pain. She reports that pain will come and go. She states that her pain is all located on the left side. She states that sitting in one position for long periods will increase her pain, as well as standing in one position. She states that sweeping her floor will also increase her pain. She reports that sleep will vary due to pain. She states that she enjoys working outdoors, but pain will increase with working outdoors. She reports that she completes most activities despite her pain, however she is more slow and cautious. She reports that her goal is to reduce her back pain. Reported Pain Level Pain Score 3: Self Report Assessment PT Clinical Summary Pt. is an 79 year old female who enters the clinic with a diagnosis of low back pain due to DJD. She presents with impaired postural awareness, impaired ROM, pain, proximal l.e. weakness and functional decline. Continued skilled PT is indicated in order to improve these areas to allow for improved comfort with IADL performance. Plan of Care Interventions Electrical Stimulation,Gait Training,Hot Pack/Cold Pack,Manual Therapy,Neuro Re-education,Patient/ Caregiver Education,Therapeutic Activities, Therapeutic Exercise PT Services Indicated Yes Treatment Frequency and 2x/week x 10 visits Duration These treatments will address the objective and functional deficits as defined above. The patient will be advanced safely and appropriately in order for the patient to progress towards his/her prior level of function. Additional exercises will be introduced and as well as a comprehensive home exercise program upon discharge, if needed, ?to ensure carryover of functional gains achieved in the clinic. This treatment plan has been reviewed and agreement upon by the patient.
--- NOTE | 2025-01-20 09:47 | OPREHPOC ---
Outpatient Therapy Plan of Care This is a Multidisciplinary Plan of Care that may contain components documented by all disciplines (PT, OT, and ST.) PT Problem 1 PT Problem #1 Knowledge Deficit PT Goal 1 Goal / Goal Update Pt. will be independent with a HEP focusing on trunk mobility and core strength. Target Visit 2 PT Problem 2 PT Problem #2 Pain PT Goal 1 Goal / Goal Update Pt. will reports pain levels at 3/10 at worst with prolonged sitting and standing activities. Pt. will report being able to sleep through the night without pain disturbance. Target Visit 10 PT Problem 3 PT Problem #3 Impaired Functional Mobility PT Goal 1 Goal / Goal Update Pt. will present with less than 10% limitation on the Oswestry indicating significant functional improvement Pt. will demonstrate ability to safely lift from floor to waist with 10-15# object for several reps Pt. will demonstrate knowledge of proper body mechanics with household activities. Target Visit 10 PT Problem 4 PT Problem #4 Impaired Strength PT Goal 1 Goal / Goal Update Pt. will demonstrate improve left proximal l.e. strength. Target Visit 10
--- NOTE | 2025-02-20 10:23 | OPREHPOC ---
Outpatient Therapy Plan of Care This is a Multidisciplinary Plan of Care that may contain components documented by all disciplines (PT, OT, and ST.) PT Problem 1 PT Problem #1 Knowledge Deficit PT Goal 1 Goal / Goal Update Pt. will be independent with a HEP focusing on trunk mobility and core strength. Target Visit 2 Progress Met PT Problem 2 PT Problem #2 Pain PT Goal 1 Goal / Goal Update Pt. will reports pain levels at 3/10 at worst with prolonged sitting and standing activities. Pt. will report being able to sleep through the night without pain disturbance. Target Visit 10 Progress Met PT Problem 3 PT Problem #3 Impaired Functional Mobility PT Goal 1 Goal / Goal Update Pt. will present with less than 10% limitation on the Oswestry indicating significant functional improvement -not met Pt. will demonstrate ability to safely lift from floor to waist with 10-15# object for several reps -met Pt. will demonstrate knowledge of proper body mechanics with household activities. -met Target Visit 10 Progress Partially Met PT Problem 4 PT Problem #4 Impaired Strength PT Goal 1 Goal / Goal Update Pt. will demonstrate improve left proximal l.e. strength. Target Visit 10 Progress Met
--- NOTE | 2025-02-20 10:23 | PTOPDC ---
Assessment and note entered by Tia Carroll, PT Evaluation Information Assessment Status Discharge ICD-10 Condition Codes (PT) Pain in low back M54.50 Onset 11/09/24 Subjective Information Pt. reports that she woke with back pain around the beginning of November. She states that it was a gradual onset of pain. She reports that pain will come and go. She states that her pain is all located on the left side. She states that sitting in one position for long periods will increase her pain, as well as standing in one position. She states that sweeping her floor will also increase her pain. She reports that sleep will vary due to pain. She states that she enjoys working outdoors, but pain will increase with working outdoors. She reports that she completes most activities despite her pain, however she is more slow and cautious. She reports that her goal is to reduce her back pain. Reported Pain Level Pain Score 0: Self Report Assessment PT Clinical Summary Mrs. Rangel has attended 10 skilled PT visits for low back pain. Since beginning PT her pain has significantly reduced and she has made good improvements in her LE strength. She demonstrates good body mechanics when lifting objects and has been independent with her home exercises. She has met or partially met all therapeutic goals and skilled PT intervention is no longer indicated. Plan of Care PT Services Indicated No
== END 2025-04-20 23:59 | disposition home or self-care (01) ==
LOC: CHSPT 08:59
PROVIDERS: PCP Internal Medicine; Visit Provider Internal Medicine
DX: M54.50 Low back pain, unspecified (principal)
CPT/HCPCS: 97014; 97110; 97112; 97140; 97150; 97161; 97530; G0283